=== PATIENT | male | born 1940 | race Two or more races ===

== ENCOUNTER 2018-03-24 15:11 | Inpatient (IN) | payer MEDICAID, MEDICARE ==
[2018-03-24 15:43] LABS: % BASOPHILS 0.7 % (0.0-2.0); % EOSINOPHILS 2.2 % (0.0-5.0); % LYMPHOCYTES 20.4 % (20.0-50.0); % MONOCYTES 8.2 % (2.0-10.0); % NEUTROPHILS 68.5 % (40.0-80.0); EOSINOPHILE ABSOLUTE 0.2 Th/cmm (0.1-0.4); HEMATOCRIT 36.3 % (41.0-60); HEMOGLOBIN 12.3 gm/dL (12-16); LYMPHOCYTE ABSOLUTE 1.4 Th/cmm (1.5-3.0); MEAN CORPUSCULAR HEMOGLOBIN 29.7 pg (27.0-31.0); MEAN CORPUSCULAR HGB CONC 33.7 pg (28.0-36.0); MEAN PLATELET VOLUME 9.2 fl; MONOCYTE ABSOLUTE 0.6 Th/cmm (0.3-1.0); NEUTROPHILE ABSOLUTE 4.9 Th/cmm (1.8-8.0); PLATELET COUNT 159 Th/cmm (150-400); RED BLOOD COUNT 4.13 Mil/cmm (3.80-5.80); RED CELL DISTRIBUTION WIDTH 13.3 % (11.5-20.0); WHITE BLOOD COUNT 7.1 Th/cmm (4.8-10.8)
[2018-03-24 16:01] LABS: ALB/GLOB RATIO 1.4 (1.0-1.8); ALBUMIN 3.6 gm/dL (4.2-5.5); ALKALINE PHOSPHATASE 88 U/L (34-104); ANION GAP 9.5 (7.0-16.0); BILIRUBIN,TOTAL 0.4 mg/dL (0.3-1.0); BUN - UREA NITROGEN 23 mg/dL (7-25); CALCIUM SERUM 8.9 mg/dL (8.6-10.3); CARBON DIOXIDE 27.7 mEq/L (21.0-31.0); CHLORIDE 103 mEq/L (98-107); CREATININE - SERUM 1.1 mg/dL (0.7-1.3); GLUCOSE 107 mg/dL (70-105); MAGNESIUM 2.2 mg/dL (1.9-2.7); PHOSPHOROUS 3.9 mg/dL (2.5-5.0); POTASSIUM SERUM 4.2 mEq/L (3.5-5.1); SGOT 14 U/L (13-39); SGPT/ALT 9 U/L (7-52); SODIUM SERUM 136 mEq/L (136-145); TOTAL PROTEIN,SERUM 6.1 gm/dL (6.0-8.3)
[2018-03-24 17:23] LABS: URINE SOURCE CLEAN C
[2018-03-24 17:25] LABS: URINE BILIRUBIN NEGATIVE (NEGATIVE); URINE BLOOD NEGATIVE (NEGATIVE); URINE GLUCOSE (UA) NEGATIVE (NEGATIVE); URINE KETONE NEGATIVE (NEGATIVE); URINE LEUKOCYTE ESTERASE SMALL (NEGATIVE); URINE NITRATE NEGATIVE (NEGATIVE); URINE PROTEIN NEGATIVE (NEGATIVE); URINE UROBILINOGEN 0.2 E.U./dL (0.2 - 1.0)
[2018-03-24 17:28] LABS: URINE CLARITY CLEAR (CLEAR); URINE COLOR YELLOW; URINE MICROSCOPIC INDICATED? YES
[2018-03-24 17:29] LABS: URINE EPITHELIAL CELLS FEW /lpf (FEW); URINE RBC 0-2 /hpf (0-5)
[2018-03-24 17:30] LABS: URINE BACTERIA 2+ /hpf (NONE SEEN)
[2018-03-24] MEDS ORDERED: Sulfamethoxazole/TMP 800/160mg Tab PO ONE (17:34)
[2018-03-24] MEDS ORDERED: Sulfamethoxazole/TMP 800/160mg Tab ONE (18:21)
--- NOTE | 2018-03-24 19:13 | ED Physician Chart ---
ED Chief Complaint/HPI - Patient Information Date Seen:: 03/24/18 Time Seen:: 15:36 Chief Complaint:: inappropriate behavior, striking History of Present Illness:: inappropriate behavior, striking Allergies:: Allergies Allergy/AdvReac Type Severity Reaction Status Date / Time No Known Allergies Allergy Verified 03/24/18 15:35 Vitals:: Vital Signs - 8 hr 03/24/18 15:36 Temp 97.6 F HR 63 RR 17 BP 135/51 O2 Sat % 98 Historian:: Medical Records Review:: Nurse's Note Reviewed, Transfer documents Reviewed ED Review of Systems - Review of Systems General/Constitutional: No fever, No chills, No weight loss, No weakness, No diaphoresis, No edema, No loss of appetite Skin: No skin lesions, No rash, No bruising Head: No headache, No light-headedness Eyes: No loss of vision, No pain, No diplopia ENT: No earache, No nasal drainage, No sore throat, No tinnitus Neck: No neck pain, No swelling, No thyromegaly, No stiffness, No mass noted Cardio Vascular: No chest pain, No palpitations, No PND, No orthopnea, No edema Pulmonary: No SOB, No cough, No sputum, No wheezing GI: No nausea, No vomiting, No diarrhea, No pain, No melena, No hematochezia, No constipation, No hematemesis G/U: No dysuria, No frequency, No hematuria Musculoskeletal: No bone or joint pain, No back pain, No muscle pain Endocrine: No polyuria, No polydipsia Psychiatric: Other (inappropriate behavior, striking out) Hematopoietic: No bruising, No lymphadenopathy Allergic/Immuno: No urticaria, No angioedema Neurological: No syncope, No focal symptoms, No weakness, No paresthesia, No headache, No seizure, No dizziness, No confusion, No vertigo ED Past Medical History - Past Medical History Obtainable: No Past Medical History: HTN, Dementia Surgical History: other (frontal hematoma) Psychiatricy History: Schizophrenia Family Medical History - Family Member Mother History Unknown: Yes ED Physical Exam - Physical Examination General/Constitutional: Awake, Well-developed, well-nourished, Non-toxic appearing Head: Atraumatic Eyes: Lids, conjuctiva normal Skin: Nl inspection ENMT: External ears, nose nl Neck: Nontender Respiratory: Nl effort/Exclusion, Clear to Auscultation, No Wheeze/Rhonchi/Rales Cardio Vascular: RRR GI: No tenderness/rebounding/guarding, No organomegaly, No hernia, Normal BS's, Nondistended, No mass/bruits, No McBurney tenderness : No CVA tenderness Extremities: No tenderness or effusion, Full ROM, normal strength in all extremities, No edema, Normal digits & nails Neuro/Psych: Normal sensory exam, Normal motor strength Misc: Normal back, No paraspinal tenderness ED Labs/Radiology/EKG Results - Lab Results Results: Laboratory Tests 03/24/18 03/24/18 03/24/18 15:35 15:35 17:01 WBC 7.1 RBC 4.13 Hgb 12.3 Hct 36.3 L MCV 88.0 MCH 29.7 MCHC Differential 33.7 RDW 13.3 Plt Count 159 MPV 9.2 Neutrophils % 68.5 Lymphocytes % 20.4 Monocytes % 8.2 Eosinophils % 2.2 Basophils % 0.7 Sodium 136 Potassium 4.2 Chloride 103 Carbon Dioxide 27.7 Anion Gap 9.5 BUN 23 Creatinine 1.1 Est GFR ( Amer) TNP Est GFR (Non-Af Amer) TNP BUN/Creatinine Ratio 20.9 Glucose 107 H Calcium 8.9 Phosphorus 3.9 Magnesium 2.2 Total Bilirubin 0.4 AST 14 ALT 9 Alkaline Phosphatase 88 Total Protein 6.1 Albumin 3.6 L Globulin 2.5 Albumin/Globulin Ratio 1.4 Urine Source CLEAN C Urine Color YELLOW Urine Clarity CLEAR Urine pH 6.0 Ur Specific [place] 1.020 Urine Protein NEGATIVE Urine Glucose (UA) NEGATIVE Urine Ketones NEGATIVE Urine Blood NEGATIVE Urine Nitrate NEGATIVE Urine Bilirubin NEGATIVE Urine Urobilinogen 0.2 Ur Leukocyte Esterase SMALL H Urine RBC 0-2 H Urine WBC 6-10 Ur Epithelial Cells FEW Urine Bacteria 2+ H ED Assessment - Assessment General Assessment: patient is resting comfortably. has eaten dinner. Assessment/Comments:: PATIENT IS CLEAR FROM A MEDICAL STANDPOINT, BUT I RECOMMEND THAT THE PATIENT CONTINUE TO BE TREATED ON THE GEROPSYCH UNIT FOR A URINARY TRACT INFECTION. ED Septic Shock - . Is Septic Shock (SBP<90, OR Lactate>4 mmol\L) present?: No - <6hrs of presentation: Vital Signs: Vital Signs - 8 hr 03/24/18 15:36 Temp 97.6 F HR 63 RR 17 BP 135/51 O2 Sat % 98 ED Reassessment (Disposition) - Reassessment Reassessment Condition:: Unchanged - Diagnosis Diagnosis:: inappropriate behavior, striking out Urinary tract infection Traumatic brain injury Difficulty in waling Muscle weakness Hypertension Anemia Extrapyrimidal and movement disorder Benign prostatic hyperplasia - Aftercare/Follow up Instructions Notes:: PATIENT IS CLEAR FROM A MEDICAL STANDPOINT, BUT I RECOMMEND THAT THE PATIENT CONTINUE TO BE TREATED ON THE GEROPSYCH UNIT FOR A URINARY TRACT INFECTION. - Patient Disposition Discharge/Transfer:: Acute Care w/in this hosp Admitted to:: [facility] Admitting Medical Physician:: Ramón Weber Admitting Psych Physician:: Marilin Sousa Condition at Disposition:: Stable, Unchanged
[2018-03-24 21:01] VITALS: BP 140/72
[2018-03-24] MEDS ORDERED: Hydrocodone/APAP 5mg/325mg Tab PO PRN (21:03)
[2018-03-24 21:14] LABS: CHOLESTEROL 122 mg/dL (<200); HDL -HIGH DENSITY LIPOPROTEIN 38 mg/dL (23-92); TRIGLYCERIDES 159 mg/dL (<150)
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
[2018-03-25] MEDS ORDERED: FERROUS SULFATE PO SCH (09:00)
[2018-03-25] MEDS ORDERED: Non-Formulary Item 1 EA (Atenolol [Atenolol] 50 MG) PO SCH (09:00)
[2018-03-25] MEDS ORDERED: POLYETHYLENE GLYCOL 3350 17 GM PACK PO PRN (09:05)
[2018-03-25] MEDS: Ferrous Sulfate 325 MG TAB PO SCH (09:11)
[2018-03-25] MEDS: Multivitamin Tab PO SCH (09:13)
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
[2018-03-25] MEDS: Sulfamethoxazole/TMP 800/160mg Tab PO SCH ×2 (09:22→17:27)
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
[2018-03-26] MEDS: Ferrous Sulfate 325 MG TAB PO SCH (09:32)
[2018-03-26] MEDS: Sulfamethoxazole/TMP 800/160mg Tab PO SCH ×2 (09:32→17:29)
[2018-03-26] MEDS: Multivitamin Tab PO SCH (09:32)
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
[2018-03-27] MEDS: Ferrous Sulfate 325 MG TAB PO SCH (09:41)
[2018-03-27] MEDS: Multivitamin Tab PO SCH (09:41)
[2018-03-27] MEDS: Sulfamethoxazole/TMP 800/160mg Tab PO SCH ×2 (10:06→17:23)
--- NOTE | 2018-03-27 10:07 | General Progress Note ---
Subjective - Review of Systems Service Date: 03/27/18 Subjective: I am fine Objective - Results Result Diagrams: 03/24/18 15:35 03/24/18 15:35 Recent Labs: Laboratory Last Values WBC 7.1 Th/cmm (4.8-10.8) 03/24/18 15:35 RBC 4.13 Mil/cmm (3.80-5.80) 03/24/18 15:35 Hgb 12.3 gm/dL (12-16) 03/24/18 15:35 Hct 36.3 % (41.0-60) L 03/24/18 15:35 MCV 88.0 fl (80-99) 03/24/18 15:35 MCH 29.7 pg (27.0-31.0) 03/24/18 15:35 MCHC Differential 33.7 pg (28.0-36.0) 03/24/18 15:35 RDW 13.3 % (11.5-20.0) 03/24/18 15:35 Plt Count 159 Th/cmm (150-400) 03/24/18 15:35 MPV 9.2 fl 03/24/18 15:35 Neutrophils % 68.5 % (40.0-80.0) 03/24/18 15:35 Lymphocytes % 20.4 % (20.0-50.0) 03/24/18 15:35 Monocytes % 8.2 % (2.0-10.0) 03/24/18 15:35 Eosinophils % 2.2 % (0.0-5.0) 03/24/18 15:35 Basophils % 0.7 % (0.0-2.0) 03/24/18 15:35 Sodium 136 mEq/L (136-145) 03/24/18 15:35 Potassium 4.2 mEq/L (3.5-5.1) 03/24/18 15:35 Chloride 103 mEq/L (98-107) 03/24/18 15:35 Carbon Dioxide 27.7 mEq/L (21.0-31.0) 03/24/18 15:35 Anion Gap 9.5 (7.0-16.0) 03/24/18 15:35 BUN 23 mg/dL (7-25) 03/24/18 15:35 Creatinine 1.1 mg/dL (0.7-1.3) 03/24/18 15:35 Est GFR ( Amer) TNP 03/24/18 15:35 Est GFR (Non-Af Amer) TNP 03/24/18 15:35 BUN/Creatinine Ratio 20.9 03/24/18 15:35 Glucose 107 mg/dL (70-105) H 03/24/18 15:35 Calcium 8.9 mg/dL (8.6-10.3) 03/24/18 15:35 Phosphorus 3.9 mg/dL (2.5-5.0) 03/24/18 15:35 Magnesium 2.2 mg/dL (1.9-2.7) 03/24/18 15:35 Total Bilirubin 0.4 mg/dL (0.3-1.0) 03/24/18 15:35 AST 14 U/L (13-39) 03/24/18 15:35 ALT 9 U/L (7-52) 03/24/18 15:35 Alkaline Phosphatase 88 U/L (34-104) 03/24/18 15:35 Total Protein 6.1 gm/dL (6.0-8.3) 03/24/18 15:35 Albumin 3.6 gm/dL (4.2-5.5) L 03/24/18 15:35 Globulin 2.5 gm/dL 03/24/18 15:35 Albumin/Globulin Ratio 1.4 (1.0-1.8) 03/24/18 15:35 Triglycerides 159 mg/dL (<150) H 03/24/18 16:15 Cholesterol 122 mg/dL (<200) 03/24/18 16:15 LDL Cholesterol Direct 60 mg/dL (75-193) L 03/24/18 16:15 HDL Cholesterol 38 mg/dL (23-92) 03/24/18 16:15 TSH 3.21 uIU/ml (0.34-5.60) 03/24/18 15:30 Urine Source CLEAN C 03/24/18 17:01 Urine Color YELLOW 03/24/18 17:01 Urine Clarity CLEAR (CLEAR) 03/24/18 17:01 Urine pH 6.0 (4.6 - 8.0) 03/24/18 17:01 Ur Specific [place] 1.020 (1.005-1.030) 03/24/18 17:01 Urine Protein NEGATIVE mg/dL (NEGATIVE) 03/24/18 17:01 Urine Glucose (UA) NEGATIVE mg/dL (NEGATIVE) 03/24/18 17:01 Urine Ketones NEGATIVE mg/dL (NEGATIVE) 03/24/18 17:01 Urine Blood NEGATIVE (NEGATIVE) 03/24/18 17:01 Urine Nitrate NEGATIVE (NEGATIVE) 03/24/18 17:01 Urine Bilirubin NEGATIVE (NEGATIVE) 03/24/18 17:01 Urine Urobilinogen 0.2 E.U./dL (0.2 - 1.0) 03/24/18 17:01 Ur Leukocyte Esterase SMALL (NEGATIVE) H 03/24/18 17:01 Urine RBC 0-2 /hpf (0-5) H 03/24/18 17:01 Urine WBC 6-10 /hpf (0-5) 03/24/18 17:01 Ur Epithelial Cells FEW /lpf (FEW) 03/24/18 17:01 Urine Bacteria 2+ /hpf (NONE SEEN) H 03/24/18 17:01 Levetiracetam 16.1 ug/mL (10.0-40.0) 03/24/18 15:35 - Physical Exam Vitals and I&O: Vital Signs Temp 97.2 F 03/27/18 06:44 Pulse 74 03/27/18 10:00 Resp 18 03/27/18 06:44 BP 115/75 03/27/18 10:00 Pulse Ox 98 03/27/18 06:44 Intake & Output 03/26/18 03/27/18 03/27/18 18:59 06:59 18:59 Intake Total 120 Balance 120 Intake: Oral 120 Other: # Voids 4 # Bowel Movements 0 Stool Characteristics Soft Formed Brown Active Medications: Current Medications Acetaminophen (Tylenol) 650 mg PO Q6H PRN PRN Reason: MILD PAIN Acetaminophen/Hydrocodone Bitart ([place] 5mg/325mg) 1 tab PO Q6H PRN PRN Reason: MOD SEVERE PAIN (LEVEL 4-10) Stop: 05/23/18 21:02 Atenolol (Tenormin) 50 mg PO DAILY [facility] Stop: 05/24/18 08:59 Last Admin: 03/27/18 09:41 Dose: 50 mg Ferrous Sulfate (Iron) 325 mg PO DAILY [facility] Stop: 05/24/18 08:59 Last Admin: 03/27/18 09:41 Dose: 325 mg Folic Acid (Folate) 1 mg PO DAILY [facility] Stop: 05/24/18 08:59 Last Admin: 03/27/18 09:44 Dose: 1 mg Hydralazine HCl (Apresoline) 50 mg PO TID [facility] Stop: 05/24/18 08:59 Last Admin: 03/27/18 10:00 Dose: Not Given Levetiracetam (Keppra) 500 mg PO BID [facility] Stop: 05/24/18 08:59 Last Admin: 03/27/18 09:41 Dose: 500 mg Lorazepam (Ativan) 0.5 mg PO Q4HR PRN; Protocol PRN Reason: Anxiety Stop: 04/23/18 20:56 Last Admin: 03/27/18 00:22 Dose: 0.5 mg Multivitamins/Vitamin C (Theragran) 1 tab PO DAILY [facility] Stop: 05/24/18 08:59 Last Admin: 03/27/18 09:41 Dose: 1 tab Polyethylene Glycol (Miralax) 17 gm PO Q72H PRN PRN Reason: NO BM IN THREE DAYS Stop: 05/24/18 09:04 Quetiapine Fumarate (Seroquel) 12.5 mg PO BID [facility]; Protocol Stop: 05/24/18 08:59 Last Admin: 03/27/18 09:41 Dose: 12.5 mg Quetiapine Fumarate (Seroquel) 100 mg PO HS [facility]; Protocol Stop: 05/26/18 20:59 Tamsulosin HCl (Flomax) 0.8 mg PO HS [facility] Stop: 05/24/18 20:59 Last Admin: 03/26/18 20:42 Dose: 0.8 mg Trimethoprim/Sulfamethoxazole (Bactrim Ds) 1 tab PO BID [facility] Stop: 05/24/18 09:14 Last Admin: 03/26/18 17:29 Dose: 1 tab Zolpidem Tartrate (Ambien) 5 mg PO HS PRN PRN Reason: Insomnia Stop: 05/23/18 20:56 Last Admin: 03/26/18 20:43 Dose: 5 mg Assessment/Plan - Problem List Patient Problems: All Active Problems INAPPROPRIATE TOUCHING (Acute) - Assessment Assessment: Current Active Problems Problem Status Onset INAPPROPRIATE TOUCHING Acute Patient is awake, alert, not oriented. Dx: Sexual inappropriate behavior, UTI, Dementia, Schizophrenia, Anemia, BPH, HTN, S/P Frontal subdural hematoma, S/P CVA. - Plan Plan: Patient is follow by Psychiatry, continue with SNF meds, Bactrim is added for UTI. Will continue to Monitor.
--- NOTE | 2018-03-27 18:27 | Progress Notes ---
DATE: SUBJECTIVE: Chart reviewed and the patient interviewed. Also discussed the patient's condition with the staff and reviewed records and labs. The patient is still having episodes of agitation, but not as much and also easier to redirect him. The patient also is cooperative with his treatment. He is still confused and wandering around and forgetful, but not sexual inappropriate behavior like what he was doing in the senior care. ASSESSMENT: The patient is still forgetful and confused, but less agitated. TREATMENT PLAN: Continue Seroquel 12.5 mg twice a day and continue monitoring his behavior and working on behavioral modification. JOB# [id number]
--- NOTE | 2018-03-27 20:30 | Progress Notes ---
DATE: 03/27/2018 PSYCHIATRIC PROGRESS NOTE SUBJECTIVE: Chart reviewed and the patient interviewed. Also discussed the patient's condition with the staff and reviewed records and labs. The patient continued to be extremely irritable and agitated. The patient during interview is confused and was pounding on the gurney chair. The patient also did not sleep most of last night in spite of giving him Ambien. He also is still suspicious and seems to be paranoid. On the other hand, the patient is compliant with taking his medications with no side effects of medications. ASSESSMENT: The patient is confused and is agitated. TREATMENT PLAN: Continue to monitor his behavior and his condition. Also, we will increase Seroquel to 25 mg twice a day and 100 mg at bedtime. Hopefully, that helped the patient to sleep at night and help with his agitation and confusion. We will continue to follow up. [facility]# [id number]
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
--- NOTE | 2018-03-28 08:54 | General Progress Note ---
Subjective - Review of Systems Service Date: 03/28/18 Subjective: I am fine Objective - Results Result Diagrams: 03/24/18 15:35 03/24/18 15:35 Recent Labs: Laboratory Last Values WBC 7.1 Th/cmm (4.8-10.8) 03/24/18 15:35 RBC 4.13 Mil/cmm (3.80-5.80) 03/24/18 15:35 Hgb 12.3 gm/dL (12-16) 03/24/18 15:35 Hct 36.3 % (41.0-60) L 03/24/18 15:35 MCV 88.0 fl (80-99) 03/24/18 15:35 MCH 29.7 pg (27.0-31.0) 03/24/18 15:35 MCHC Differential 33.7 pg (28.0-36.0) 03/24/18 15:35 RDW 13.3 % (11.5-20.0) 03/24/18 15:35 Plt Count 159 Th/cmm (150-400) 03/24/18 15:35 MPV 9.2 fl 03/24/18 15:35 Neutrophils % 68.5 % (40.0-80.0) 03/24/18 15:35 Lymphocytes % 20.4 % (20.0-50.0) 03/24/18 15:35 Monocytes % 8.2 % (2.0-10.0) 03/24/18 15:35 Eosinophils % 2.2 % (0.0-5.0) 03/24/18 15:35 Basophils % 0.7 % (0.0-2.0) 03/24/18 15:35 Sodium 136 mEq/L (136-145) 03/24/18 15:35 Potassium 4.2 mEq/L (3.5-5.1) 03/24/18 15:35 Chloride 103 mEq/L (98-107) 03/24/18 15:35 Carbon Dioxide 27.7 mEq/L (21.0-31.0) 03/24/18 15:35 Anion Gap 9.5 (7.0-16.0) 03/24/18 15:35 BUN 23 mg/dL (7-25) 03/24/18 15:35 Creatinine 1.1 mg/dL (0.7-1.3) 03/24/18 15:35 Est GFR ( Amer) TNP 03/24/18 15:35 Est GFR (Non-Af Amer) TNP 03/24/18 15:35 BUN/Creatinine Ratio 20.9 03/24/18 15:35 Glucose 107 mg/dL (70-105) H 03/24/18 15:35 Calcium 8.9 mg/dL (8.6-10.3) 03/24/18 15:35 Phosphorus 3.9 mg/dL (2.5-5.0) 03/24/18 15:35 Magnesium 2.2 mg/dL (1.9-2.7) 03/24/18 15:35 Total Bilirubin 0.4 mg/dL (0.3-1.0) 03/24/18 15:35 AST 14 U/L (13-39) 03/24/18 15:35 ALT 9 U/L (7-52) 03/24/18 15:35 Alkaline Phosphatase 88 U/L (34-104) 03/24/18 15:35 Total Protein 6.1 gm/dL (6.0-8.3) 03/24/18 15:35 Albumin 3.6 gm/dL (4.2-5.5) L 03/24/18 15:35 Globulin 2.5 gm/dL 03/24/18 15:35 Albumin/Globulin Ratio 1.4 (1.0-1.8) 03/24/18 15:35 Triglycerides 159 mg/dL (<150) H 03/24/18 16:15 Cholesterol 122 mg/dL (<200) 03/24/18 16:15 LDL Cholesterol Direct 60 mg/dL (75-193) L 03/24/18 16:15 HDL Cholesterol 38 mg/dL (23-92) 03/24/18 16:15 TSH 3.21 uIU/ml (0.34-5.60) 03/24/18 15:30 Urine Source CLEAN C 03/24/18 17:01 Urine Color YELLOW 03/24/18 17:01 Urine Clarity CLEAR (CLEAR) 03/24/18 17:01 Urine pH 6.0 (4.6 - 8.0) 03/24/18 17:01 Ur Specific [place] 1.020 (1.005-1.030) 03/24/18 17:01 Urine Protein NEGATIVE mg/dL (NEGATIVE) 03/24/18 17:01 Urine Glucose (UA) NEGATIVE mg/dL (NEGATIVE) 03/24/18 17:01 Urine Ketones NEGATIVE mg/dL (NEGATIVE) 03/24/18 17:01 Urine Blood NEGATIVE (NEGATIVE) 03/24/18 17:01 Urine Nitrate NEGATIVE (NEGATIVE) 03/24/18 17:01 Urine Bilirubin NEGATIVE (NEGATIVE) 03/24/18 17:01 Urine Urobilinogen 0.2 E.U./dL (0.2 - 1.0) 03/24/18 17:01 Ur Leukocyte Esterase SMALL (NEGATIVE) H 03/24/18 17:01 Urine RBC 0-2 /hpf (0-5) H 03/24/18 17:01 Urine WBC 6-10 /hpf (0-5) 03/24/18 17:01 Ur Epithelial Cells FEW /lpf (FEW) 03/24/18 17:01 Urine Bacteria 2+ /hpf (NONE SEEN) H 03/24/18 17:01 Levetiracetam 16.1 ug/mL (10.0-40.0) 03/24/18 15:35 - Physical Exam Vitals and I&O: Vital Signs Temp 97.6 F 03/28/18 06:24 Pulse 64 03/28/18 06:24 Resp 18 03/28/18 06:24 BP 120/70 03/28/18 06:24 Pulse Ox 96 03/28/18 06:24 Intake & Output 03/27/18 03/28/18 03/28/18 18:59 06:59 18:59 Intake Total 1500 180 Balance 1500 180 Intake: Oral 1500 180 Other: # Voids 3 4 # Bowel Movements 0 0 Active Medications: Current Medications Acetaminophen (Tylenol) 650 mg PO Q6H PRN PRN Reason: MILD PAIN Acetaminophen/Hydrocodone Bitart ([place] 5mg/325mg) 1 tab PO Q6H PRN PRN Reason: MOD SEVERE PAIN (LEVEL 4-10) Stop: 05/23/18 21:02 Atenolol (Tenormin) 50 mg PO DAILY [facility] Stop: 05/24/18 08:59 Last Admin: 03/27/18 09:41 Dose: 50 mg Ferrous Sulfate (Iron) 325 mg PO DAILY [facility] Stop: 05/24/18 08:59 Last Admin: 03/27/18 09:41 Dose: 325 mg Folic Acid (Folate) 1 mg PO DAILY [facility] Stop: 05/24/18 08:59 Last Admin: 03/27/18 09:44 Dose: 1 mg Hydralazine HCl (Apresoline) 50 mg PO TID [facility] Stop: 05/24/18 08:59 Last Admin: 03/27/18 20:22 Dose: 50 mg Levetiracetam (Keppra) 500 mg PO BID [facility] Stop: 05/24/18 08:59 Last Admin: 03/27/18 17:23 Dose: 500 mg Lorazepam (Ativan) 0.5 mg PO Q4HR PRN; Protocol PRN Reason: Anxiety Stop: 04/23/18 20:56 Last Admin: 03/27/18 00:22 Dose: 0.5 mg Multivitamins/Vitamin C (Theragran) 1 tab PO DAILY [facility] Stop: 05/24/18 08:59 Last Admin: 03/27/18 09:41 Dose: 1 tab Polyethylene Glycol (Miralax) 17 gm PO Q72H PRN PRN Reason: NO BM IN THREE DAYS Stop: 05/24/18 09:04 Quetiapine Fumarate (Seroquel) 12.5 mg PO BID [facility]; Protocol Stop: 05/24/18 08:59 Last Admin: 03/27/18 17:23 Dose: 12.5 mg Quetiapine Fumarate (Seroquel) 100 mg PO HS [facility]; Protocol Stop: 05/26/18 20:59 Tamsulosin HCl (Flomax) 0.8 mg PO HS [facility] Stop: 05/24/18 20:59 Last Admin: 03/27/18 20:22 Dose: 0.8 mg Trimethoprim/Sulfamethoxazole (Bactrim Ds) 1 tab PO BID [facility] Stop: 05/24/18 09:14 Last Admin: 03/27/18 17:23 Dose: 1 tab Zolpidem Tartrate (Ambien) 5 mg PO HS PRN PRN Reason: Insomnia Stop: 05/23/18 20:56 Last Admin: 03/26/18 20:43 Dose: 5 mg Assessment/Plan - Problem List Patient Problems: All Active Problems INAPPROPRIATE TOUCHING (Acute) - Assessment Assessment: Current Active Problems Problem Status Onset INAPPROPRIATE TOUCHING Acute Patient is awake, alert, not oriented. Dx: Sexual inappropriate behavior, UTI, Dementia, Schizophrenia, Anemia, BPH, HTN, S/P Frontal subdural hematoma, S/P CVA. - Plan Plan: Patient is follow by Psychiatry, continue with SNF meds, Bactrim is added for UTI. Will continue to Monitor.
[2018-03-28] MEDS: Ferrous Sulfate 325 MG TAB PO SCH (09:49)
[2018-03-28] MEDS: Sulfamethoxazole/TMP 800/160mg Tab PO SCH ×2 (09:49→17:07)
[2018-03-28] MEDS: Multivitamin Tab PO SCH (09:49)
== END 2018-03-28 19:00 | DRG 885 ==
LOC: ER 15:11 → GERO2 18:00
PROVIDERS: ADMIT Psychiatry & Neurology Psychiatry; ATTEND Psychiatry & Neurology Psychiatry
DX: F29 Unspecified psychosis not due to a substance or known physiological condition (principal); N39.0 Urinary tract infection, site not specified; G25.9 Extrapyramidal and movement disorder, unspecified; F03.91 Unspecified dementia, unspecified severity, with behavioral disturbance; I10 Essential (primary) hypertension; F20.9 Schizophrenia, unspecified; D64.9 Anemia, unspecified; N40.0 Benign prostatic hyperplasia without lower urinary tract symptoms; I25.10 Atherosclerotic heart disease of native coronary artery without angina pectoris; E11.9 Type 2 diabetes mellitus without complications; Z86.73 Personal history of transient ischemic attack (TIA), and cerebral infarction without residual deficits
CPT/HCPCS: 36415-UA; 80053-TC; 80061-TC; 80299-90; 81001-TC; 83036-90; 83735-TC; 84100-TC; 84443-TC; 85025-TC; 87086-90; Z7610

== ENCOUNTER 2019-06-04 11:21 | Inpatient (IN) | payer MEDICARE, MEDICAID ==
[2019-06-04] MEDS ORDERED: Magnesium Hydroxide (MOM) 30 mL UDC PO PRN (13:13)
[2019-06-04] MEDS ORDERED: Maalox 30 mL Cup PO PRN (13:13)
[2019-06-04] MEDS ORDERED: POLYETHYLENE GLYCOL 3350 17 GM PACK PO PRN (21:57)
[2019-06-05] MEDS ORDERED: Fleet Enema 135 mL RC SCH (09:00)
[2019-06-05] MEDS ORDERED: Multivitamin Tab PO SCH (09:00)
[2019-06-05] MEDS: Multivitamin Tab PO SCH (09:22)
[2019-06-05] MEDS: Ferrous Sulfate 325 MG TAB PO SCH (09:22)
[2019-06-05] MEDS ORDERED: Fleet Enema 135 mL RC PRN (13:08)
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
[2019-06-06] MEDS: Ferrous Sulfate 325 MG TAB PO SCH (08:44)
[2019-06-06] MEDS: Multivitamin Tab PO SCH (08:44)
[2019-06-07] MEDS: Multivitamin Tab PO SCH (08:24)
[2019-06-07] MEDS: Ferrous Sulfate 325 MG TAB PO SCH (08:24)
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
--- NOTE | 2019-06-07 20:35 | Psychiatric Evaluation ---
DATE OF SERVICE: 06/07/2019 SUBJECTIVE: The patient was seen and evaluated. The patient's chart reviewed. Covering for Dr. Sousa. The patient presents disorganized, does not know where he is. Limited historian. PHYSICAL EXAMINATION: Poor memory, delusions. ASSESSMENT AND PLAN: The patient with dementia, comorbid psychosis, behavior disturbances. We will add Aricept to his current medication regimen. JOB# [id number]
[2019-06-08] MEDS: Multivitamin Tab PO SCH (08:07)
[2019-06-08] MEDS: Ferrous Sulfate 325 MG TAB PO SCH (08:07)
--- NOTE | 2019-06-08 20:58 | Progress Notes ---
DATE: 06/08/2019 SUBJECTIVE: The patient is still disorganized, not really making much sense. On exam, confused, disoriented, ongoing symptoms, poor orientation, in the wrong room, wandering behaviors. Still impulsive, unpredictable, ongoing safety concerns. MEDICATIONS: Reviewed. PLAN: We will continue to monitor. Continue dosing of Risperdal. JOB# [id number]
[2019-06-09] MEDS: Ferrous Sulfate 325 MG TAB PO SCH (08:32)
[2019-06-09] MEDS: Multivitamin Tab PO SCH (08:32)
--- NOTE | 2019-06-09 09:35 | Progress Notes ---
DATE: 06/09/2019 SUBJECTIVE: The patient in the hospital, history of dementia, disorganized on exam, difficult to interview fully, not really making too much sense, clearly confused, poor orientation, not answering most questions appropriately, does not know the year, the month, seen by staff, walking naked in the hallway, needing redirection, going into other patients' rooms. We will continue to monitor ongoing symptoms, still with outbursts as noted. PLAN: We will initiate dosing of medications to try to better control his symptoms. JOB# [id number]
--- NOTE | 2019-06-10 07:19 | Progress Notes ---
DATE: 06/10/2019 SUBJECTIVE: The patient in the hospital, slept for about 7 hours, still confused, forgetful, withdrawn. Staff noting they found him naked in bed, still needing some prompting, redirection, ongoing symptoms, safety concerns, also pending social media intern consult. It is unclear where he is going to go when he leaves here. Medications were reviewed including dosages, frequencies. ASSESSMENT: The patient still remains symptomatic, confused, sexual inappropriate that is why I came here, still lying in bed naked, staff noticing him naked at times, needing redirection. PLAN: We will continue to monitor ongoing safety concerns, concerns about his appropriateness to be cared for at a lower level of care. JOB# [id number]
[2019-06-10] MEDS: Multivitamin Tab PO SCH (09:14)
[2019-06-10] MEDS: Ferrous Sulfate 325 MG TAB PO SCH (09:14)
[2019-06-11] MEDS: Ferrous Sulfate 325 MG TAB PO SCH (09:26)
[2019-06-11] MEDS: Multivitamin Tab PO SCH (09:26)
--- NOTE | 2019-06-11 21:12 | Progress Notes ---
DATE: 06/11/2019 SUBJECTIVE: The patient slept about 5-1/2 hours, woke up on her own. On [id number], the patient quiets, poorly oriented, sometimes noted to be preoccupied, responding to internal stimuli. Concerns for ongoing psychotic symptoms, ongoing confusion, disorientation seen, still sometimes naked, needing a lot of prompting, redirection. Medications are noted. Currently on dosing of the Risperdal. We will continue to monitor closely. JOB# [id number]
[2019-06-12] MEDS: Ferrous Sulfate 325 MG TAB PO SCH (08:39)
[2019-06-12] MEDS: Multivitamin Tab PO SCH (08:39)
--- NOTE | 2019-06-12 15:32 | Progress Notes ---
DATE: 06/12/2019 SUBJECTIVE: The patient in the hospital, confused, does not really know where he is or what is going on, ongoing symptoms, confusion, mostly withdrawn, very impulsive, unpredictable, behavioral disturbances. Medications were reviewed. Generally calmer versus admission. Seems to be doing well with current dosing of medications. We will continue inpatient monitoring. JOB# [id number]
[2019-06-13] MEDS: Multivitamin Tab PO SCH (08:56)
[2019-06-13] MEDS: Ferrous Sulfate 325 MG TAB PO SCH (08:56)
--- NOTE | 2019-06-13 14:02 | Progress Notes ---
DATE: 06/13/2019 SUBJECTIVE: The patient in the hospital, could not sleep too much, try to climb out of bed, placed in a Gabriela chair, remains highly impulsive, unpredictable, very confused on exam. Ongoing behavioral disturbances, unable to be handled at lower level of care. MEDICATIONS: Medications were reviewed, currently on dosing of Risperdal, Namenda, also Aricept. ASSESSMENT: The patient remains symptomatic, anxious, impulsive as noted. PLAN: We will continue to monitor. The patient may need dose adjustment of medications. We will consider changes to his medication regimen. JOB# [id number]
[2019-06-14] MEDS: Ferrous Sulfate 325 MG TAB PO SCH (08:19)
[2019-06-14] MEDS: Multivitamin Tab PO SCH (08:20)
--- NOTE | 2019-06-14 22:19 | Progress Notes ---
DATE: 06/14/2019 SUBJECTIVE: The patient was seen, chart reviewed, and discussed with staff. The patient continues to be very impulsive, attempting to crawl out of his geriatric chair. The patient also been engaging in disrobing behavior. Continues to be unable or unwilling to answer most questions. PLAN: The patient continues to be extremely impulsive, demented and disorganized, so that he will require inpatient care center and treatment. We will monitor on a daily basis for response to medications and titrate medications as needed. [facility]# [id number]
[2019-06-15] MEDS: Multivitamin Tab PO SCH (08:30)
[2019-06-15] MEDS: Ferrous Sulfate 325 MG TAB PO SCH (08:30)
--- NOTE | 2019-06-15 19:32 | Progress Notes ---
DATE: Covering for Dr. Sousa. Case was discussed with staff of the patient, reviewed records. This is an 78-year-old male who was here on 06/04/2019 with a history of psychosis, unspecified. Transferred from nursing facility because of increasing irritability, agitation inappropriate sexual behavior. The patient is a poor historian. He has been hospitalized here before. The patient was restarted on medications, Risperdal and Depakote. The patient also is demented. The patient continues to be unpredictable, impulsive, needing redirection. Continues to have poor insight, unable to participate in meaningful conversation or make safe plan for self-care. He is highly impulsive, unpredictable. At times, unable to sleep. He has no side effects with the medication, no sedation, no nausea and he is on Risperdal, Namenda and Aricept and we will continue to work with the patient in group therapy, milieu therapy, adjust medication as needed. JOB# [id number] MTDD
[2019-06-16] MEDS: Ferrous Sulfate 325 MG TAB PO SCH (09:12)
[2019-06-16] MEDS: Multivitamin Tab PO SCH (09:12)
--- NOTE | 2019-06-16 22:47 | Progress Notes ---
DATE: 06/16/2019 Case was discussed with staff of the patient, reviewed records. The patient continues to be unpredictable, impulsive, needing redirection. Continues to be inappropriate with sexually acting behavior. Continues to have poor insight and unable to participate in a meaningful conversation or make safe plan for self-care, demented, confused. No side effects with the medication, no sedation, no nausea, no extrapyramidal symptoms. So, Risperdal 1 mg twice a day and Paxil 5 mg twice a day and we will continue to work with the patient in group therapy, milieu therapy, adjust the medication as needed. I will be increasing his Namenda to 5 mg twice a day. JOB# [id number]
[2019-06-17] MEDS: Multivitamin Tab PO SCH (08:33)
[2019-06-17] MEDS: Ferrous Sulfate 325 MG TAB PO SCH (08:34)
--- NOTE | 2019-06-17 22:54 | Progress Notes ---
DATE: Case was discussed with staff of the patient, reviewed records. The patient continues to isolate himself, at times acting inappropriate. He is sexually inappropriate. He is demented, confused. He is sleeping better, eating better. No side effects with the medication, no sedation, no nausea, no extrapyramidal symptoms. Had very poor insight about his inappropriate behavior has to do with his dementia. He tolerated increase in Namenda with no side effects and we will continue the patient in group therapy, milieu therapy, and adjust medication as needed. JOB# [id number] MTDD
[2019-06-18] MEDS: Ferrous Sulfate 325 MG TAB PO SCH (08:10)
[2019-06-18] MEDS: Multivitamin Tab PO SCH (08:10)
--- NOTE | 2019-06-18 18:33 | Progress Notes ---
DATE: 06/18/2019 Case was discussed with staff of the patient, reviewed records. The patient continues to be internally preoccupied, isolating himself, does not participate much. Continues to be inappropriate, confused, sleeping better, eating better, continues to be unable to make safe plan for self-care. Tolerating increase in Namenda with no side effects, no sedation, no nausea and I increased Namenda to 10 mg twice a day. We will continue outpatient group therapy, milieu therapy, adjust medication as needed. JOB# [id number]
[2019-06-19] MEDS: Multivitamin Tab PO SCH (08:12)
[2019-06-19] MEDS: Ferrous Sulfate 325 MG TAB PO SCH (08:12)
--- NOTE | 2019-06-19 18:00 | Discharge Summary ---
DATE OF DISCHARGE: 06/19/2019 AGE: 78. SEX: Male. PHYSICIAN: Dr. Sousa. FINAL DIAGNOSIS AND PRIMARY DIAGNOSIS: Unspecified psychosis. SECONDARY DIAGNOSIS: Dementia, moderate, without psychotic features. REASON FOR HOSPITALIZATION: The patient was admitted to the hospital from [facility] because of increased irritability and agitation and inappropriate sexual behavior and inability to redirect the patent. HOSPITAL COURSE: The patient continued to be in irritable mood and easily agitated. On the beginning of the admission, the patient was exhibiting some sexual inappropriate behavior, but the patient was restarted on Aricept as well as on Risperdal in a dose of 1 mg twice a day and continue to take Paxil 5 mg twice a day and Namenda 5 mg twice a day. Gradually, the patient's affect was brighter. The patient was less irritable and less agitated. The patient was returned back to the [facility]. Physical exam of the patient was basically with no major medical problems. Also, labs were basically within normal. AFTER DISCHARGE PLANS: The patient will return to [facility] with plans to follow him there. EXPECTED OUTCOME AFTER DISCHARGE: Fair if the patient continues his treatment and medications. JOB# [id number]
--- NOTE | 2019-06-20 00:09 | Progress Notes ---
DATE: 06/19/2019 SUBJECTIVE: Chart was reviewed and the patient interviewed. Also, discussed the patient's condition with the staff and reviewed records and labs. The patient remains in a depressed mood and less irritable and less agitated. The patient also is interacting slightly more. Also, decreased sexual inappropriate behavior. At the same time, we will continue monitoring. We will discharge the patient today to [facility] and continue to follow up as an outpatient. [facility]# [id number]
[2019-06-20] MEDS: Multivitamin Tab PO SCH (08:27)
[2019-06-20] MEDS: Ferrous Sulfate 325 MG TAB PO SCH (08:27)
--- NOTE | 2019-06-20 20:40 | Progress Notes ---
DATE: 06/20/2019 SUBJECTIVE: The patient was seen and evaluated. The patient's chart reviewed. This is Dr. Mcqueen covering for Dr. Sousa. IDENTIFYING DATA: An 78-year-old male. Overnight, nursing staff reported the patient was going to be discharged. Discharge __ for lack of placement. Today on [id number] evaluation, no SI or HI. ASSESSMENT AND PLAN: We will continue with primary psychiatrist's treatment plan and goals. He is scheduled to be discharged. Mental embedded case manager to continue to facilitate transition when bed available. JOB# [id number]
[2019-06-21] MEDS: Ferrous Sulfate 325 MG TAB PO SCH (08:48)
[2019-06-21] MEDS: Multivitamin Tab PO SCH (08:49)
--- NOTE | 2019-06-21 10:55 | Progress Notes ---
DATE: 06/21/[address] Sousa. No SI, HI endorsed today. No hypersexual behavior, less disorganized. ASSESSMENT AND PLAN: History of dementia with severe behavior disturbance since he was supposed to be discharged on Saturday. We will continue working very closely with medical fee clerk for a safe disposition when bed available. JOB# [id number]
[2019-06-22] MEDS: Multivitamin Tab PO SCH (08:20)
[2019-06-22] MEDS: Ferrous Sulfate 325 MG TAB PO SCH (08:21)
[2019-06-23] MEDS: Ferrous Sulfate 325 MG TAB PO SCH (08:23)
[2019-06-23] MEDS: Multivitamin Tab PO SCH (08:24)
--- NOTE | 2019-06-23 22:10 | Progress Notes ---
DATE: 06/22/2019 Chart reviewed and the patient interviewed. Also discussed the patient's condition with the staff. Also, the patient is calmer and less agitated. The patient also is exhibiting no sexual inappropriate behavior. Also, compliant with taking his medications with no side effects of medications. ASSESSMENT: The patient is less agitated and not psychotic. TREATMENT PLAN: We will discharge the patient today back to [facility] and we will continue to follow up. [facility]# [id number]
--- NOTE | 2019-06-23 22:12 | Progress Notes ---
DATE: 06/23/2019 SUBJECTIVE: Chart was reviewed and the patient interviewed. Also discussed the patient's condition with the staff and reviewed records and labs. The patient was supposed to be discharged yesterday, but for some unknown reason, nobody called me yesterday to tell me that the patient did not leave and the facility did not accept him and when I came today and they informed me that the facility did not accept the patient back and that there has been some kind of survey. The patient also is still calm and cooperative and exhibiting no major behavioral issues. ASSESSMENT: The patient is calm and waiting for discharge. TREATMENT PLAN: Continue monitoring behavior and we will continue to follow up and planning to discharge the patient when placement is available if the facility will take him back. JOB# [id number]
[2019-06-24] MEDS: Ferrous Sulfate 325 MG TAB PO SCH (09:00)
[2019-06-24] MEDS: Multivitamin Tab PO SCH (09:01)
--- NOTE | 2019-06-24 21:37 | Progress Notes ---
DATE: 06/24/2019 SUBJECTIVE: Chart was reviewed and the patient interviewed. Also discussed the patient's condition with the staff and reviewed records and labs. The patient continues to be isolative and withdrawn. The patient also is mumbling in Luxembourgish words, difficult to understand. Also seems to be preoccupied. Otherwise, the patient is exhibiting no sexual inappropriate behavior. He also continued to comply with taking medications with no side effects. The patient still has no place to go and [address] refusing to take the patient there. ASSESSMENT: The patient seems to be slightly calmer, but still considered to be gravely disabled because no place to live in. TREATMENT PLAN: Continue monitoring behavior and continue Risperdal as well as Namenda and Aricept. Also, continue to work on discharge plans and on placement issue. JOB# [id number]
[2019-06-25] MEDS: Ferrous Sulfate 325 MG TAB PO SCH (08:40)
[2019-06-25] MEDS: Multivitamin Tab PO SCH (08:41)
--- NOTE | 2019-06-25 22:13 | Progress Notes ---
DATE: 06/25/2019 SUBJECTIVE: Chart was reviewed and the patient interviewed. Also discussed the patient's condition with the staff and reviewed records and labs. The patient continued to be confused, but not agitated and no sexual behavioral problems. The patient also is compliant with taking his medications and he denies any side effects of medications. Because of his confusion, the patient needs redirections. Otherwise, he wants to be left alone at times. Also, he still needs placement and no place accepted the patient yet. ASSESSMENT: The patient is still confused, but not agitated. TREATMENT PLAN: Continue Risperdal, Aricept, and Namenda. Also, continue working with his watch caser in regard to placement issue and discharge plans. JOB# [id number]
[2019-06-26] MEDS: Ferrous Sulfate 325 MG TAB PO SCH (09:25)
[2019-06-26] MEDS: Multivitamin Tab PO SCH (09:25)
[2019-06-27] MEDS: Ferrous Sulfate 325 MG TAB PO SCH (09:19)
[2019-06-27] MEDS: Multivitamin Tab PO SCH (09:19)
--- NOTE | 2019-06-27 20:30 | Progress Notes ---
DATE: 06/27/2019 Case was discussed with staff of the patient, reviewed records. The patient continues to be inappropriate. Continues to be confused. He is a well-known case to me. I have seen him before many times covering for Dr. Sousa. He is compliant with the medication with no side effects, no sedation, no nausea, no extrapyramidal symptoms. Continues to be confused, very poor insight. He is on Paxil 5 mg daily and Risperdal 1 mg twice a day and I will be increasing his Paxil to 5 mg twice a day. I will increase it to 10 mg twice a day. We will continue outpatient group therapy, milieu therapy, adjust medication as needed. JOB# [id number] MTDJasper
[2019-06-28] MEDS: Multivitamin Tab PO SCH (08:33)
[2019-06-28] MEDS: Ferrous Sulfate 325 MG TAB PO SCH (08:34)
--- NOTE | 2019-06-28 13:58 | Progress Notes ---
DATE: 06/28/2019 Case was discussed with staff of the patient, reviewed records. The patient continues to be inappropriate at times. Continues to have episodes of agitation and irritability. He is sleeping better, eating better have poor insight about his behavior. I will be increasing his Namenda further to 10 mg twice a day to help improve his cognition and hopefully improve his behavior. We will continue outpatient group therapy, milieu therapy, and adjust medications as needed. [facility]# [id number]
--- NOTE | 2019-06-28 18:50 | Progress Notes ---
DATE: 06/26/2019 Chart reviewed and the patient interviewed. Also discussed the patient's condition with the staff and reviewed records and labs. The patient is still confused. The patient also is still anxious. The patient also is still forgetful and needs redirections. On the other hand, the patient is not as agitated and also no sexual behavioral problems. At the same time, it seemed that the patient might be able to return to [facility] if they will accept him back. TREATMENT PLAN: Will discharge the patient today. JOB# [id number]
--- NOTE | 2019-06-28 19:14 | Progress Notes ---
DATE: 06/26/2019 SUBJECTIVE: Chart is reviewed and patient is interviewed. Also, I discussed the patient's condition with the staff and reviewed records and labs. The patient's affect is brighter. The patient is calmer. There is no sexually inappropriate behavior and no agitation. Also, cooperative and compliant with treatment recommendations. TREATMENT PLAN: Planning to discharge the patient to [facility] and follow up there. JOB# [id number]
[2019-06-29] MEDS: Ferrous Sulfate 325 MG TAB PO SCH (08:18)
[2019-06-29] MEDS: Multivitamin Tab PO SCH (08:18)
--- NOTE | 2019-06-29 09:42 | Progress Notes ---
DATE: SUBJECTIVE: Chart reviewed and the patient interviewed. Also discussed the patient's condition with the staff and reviewed records and labs. The patient is calm and cooperative with treatment. The patient also is still in a depressed mood and still preoccupied. The patient also is still slightly suspicious and paranoid, but no behavioral problems and no sexual inappropriate behavior. ASSESSMENT: The patient seems to be calmer. TREATMENT PLAN: We will continue to monitor behavior and condition closely. Also, we will continue adjusting psychotropic medications and work on discharge plans and placement issue. JOB# [id number]
--- NOTE | 2019-06-30 07:52 | Discharge Summary ---
DATE OF DISCHARGE: 06/29/2019 PATIENT'S AGE: 78. SEX: Male. PHYSICIAN: Dr. Sousa. FINAL DIAGNOSIS AND PRIMARY DIAGNOSIS: Unspecified psychosis, severe, with behavior disturbances. SECONDARY DIAGNOSIS: Dementia, moderate, with psychotic features. REASON FOR HOSPITALIZATION: The patient was admitted to the hospital because of inappropriate sexual behavior and agitation in [facility] HOSPITAL COURSE: The patient hospital course was dictated on 06/26/2019 and dictation number is [id number] and [id number], and that was dictated on 06/19/2019. No changes and the patient had no major medical issues or behavioral issues at that time. [facility] did not accept the patient on 06/26/2019, but they accepted him on 06/29/2019 and the patient was discharged there. Plan to follow up there. JOB# [id number]
== END 2019-06-29 14:15 | DRG 885 ==
LOC: GERO 11:45
PROVIDERS: ADMIT Psychiatry & Neurology Psychiatry; ATTEND Psychiatry & Neurology Psychiatry
DX: F29 Unspecified psychosis not due to a substance or known physiological condition (principal); I11.0 Hypertensive heart disease with heart failure; F03.91 Unspecified dementia, unspecified severity, with behavioral disturbance; N40.0 Benign prostatic hyperplasia without lower urinary tract symptoms; I25.10 Atherosclerotic heart disease of native coronary artery without angina pectoris; I50.9 Heart failure, unspecified; F41.9 Anxiety disorder, unspecified; F20.9 Schizophrenia, unspecified; I25.2 Old myocardial infarction
CPT/HCPCS: 82948-90; 83036-90; Z7610